=== PATIENT | male | born 1955 | race Caucasian/White ===

== ENCOUNTER 2023-12-27 15:46 | Observation (INO) ==
[2023-12-27 16:45] LABS: Basophils # (auto) 0.02 K/uL (0.00-0.20); Basophils % (auto) 0.3 %; Eosinophils % (auto) 1.3 %; Hematocrit (blood only) 40.1 % (42.0-52.0); Hemoglobin 13.1 g/dl (14.0-18.0); Immature Granulocytes # (auto) 0.02 K/uL (0.01-0.20); Immature Granulocytes % (auto) 0.3 %; Lymphocytes # (auto) 2.01 K/uL (1.20-3.40); Lymphocytes % (auto) 25.5 %; Mean Corpuscular Hemoglobin 28.5 pg (25.0-34.0); Mean Corpuscular Hgb Conc 32.7 g/dL (32.0-36.0); Mean Corpuscular Volume 87.2 fL (80.0-100.0); Mean Platelet Volume 10.4 fL (9.4-12.4); Monocytes # (auto) 0.71 K/uL (0.11-0.59); Neutrophils # (auto) 5.01 K/uL (1.40-6.50); Neutrophils % (auto) 63.6 %; Platelet Count 238 K/uL (130-400); RDW Coefficient of Variation 13.2 % (11.5-14.5); RDW Standard Deviation 41.7 fL (36.4-46.3); White Blood Count 7.87 K/ul (4.8-10.8)
--- NOTE | 2023-12-27 16:54 | XRay Report ---
XR chest 1V portable CLINICAL HISTORY: Chest pain, nonspecific TECHNIQUE: Single frontal radiograph of the chest was obtained. Comparison: Comparison is made to chest radiograph 04/04/2021 FINDINGS: ACDF is seen. The cardiomediastinal silhouette is normal. The lungs are clear. No evidence of pleural effusion or pneumothorax. IMPRESSION: No acute chest disease. ACT 112: Negative or not required by law. Electronically signed by: Gustavo Jessica M.D. 12/27/2023 4:52 PM
[2023-12-27] MEDS: OPTIRAY 320 125ml IV ONE (16:58)
[2023-12-27 17:02] LABS: Albumin Globulin Ratio 1.4 (0.9-2); Albumin Level 4.3 gm/dl (3.4-5.0); BUN Creatinine Ratio 17.3 (10-20); Bilirubin,Total 0.5 mg/dl (0.2-1.0); Calcium 10.4 mg/dl (8.6-10.3); Creatinine Clr Calc Pharmacy 88.4 ml/min; Est GFR (African American) 80.6 ml/min; Est GFR (Non-African American) 69.6 ml/min; Potassium 4.3 mmol/L (3.5-5.1); Total Protein 7.3 gm/dl (6.0-8.3)
[2023-12-27 17:08] LABS: Troponin I High Sensitivity 7.7 pg/ml (0-20)
--- NOTE | 2023-12-27 17:09 | CT Scan Report ---
CT ANGIOGRAM OF THE CHEST CLINICAL HISTORY: Dyspnea COMPARISON STUDY: Chest x-ray dated 12/27/2023. TECHNIQUE: Following the IV administration of 120 cc of Optiray 320, CT angiogram of the chest was pe rformed from the upper abdomen to the thoracic inlet utilizing the pulmonary embolus protocol. Images are reviewed in the axial, sagittal, and coronal planes. 3-D MIPS images are created and assessed. I V contrast was administered without complication. A dose lowering technique was utilized adhering to the principles of ALARA. CT DOSE: 889.38 mGy.cm FINDINGS: Thyroid: Imaged portions of the thyroid gland are normal in size and attenuation. Thoracic aorta: There is moderate atherosclerotic calcification of the thoracic aorta, which is zohra l in caliber and demonstrates standard 3-vessel arch anatomy. No dissection is seen. Pulmonary vasculature: The pulmonary trunk is normal in caliber. There is pulmonary embolus within th e distal right main pulmonary artery which extends into the right lower lobe pulmonary artery into se gmental and subsegmental branches. There is also segmental and subsegmental pulmonary embolus within branches of the right upper and right middle lobe pulmonary arteries. Segmental and subsegmental pulm onary emboli are seen within branches of the left lower lobe and lingular pulmonary arteries. Heart: The heart is top normal in size and without pericardial effusion. The coronary arteries are de nsely calcified. Lungs and pleural spaces: Evaluation of the lung parenchyma is modestly degraded by motion artifact. No airspace consolidation or pleural effusion is identified. The trachea and central airways are bridgette r. Mediastinum: There is no mediastinal lymphadenopathy. Miranda: Clear. Axillae: There is no axillary lymphadenopathy. Upper abdomen: The liver is still a ptotic. Partially visualized upper abdominal viscera is otherwise within normal limits. Skeletal structures: No lytic or blastic bony lesions are seen. Fusion hardware is seen in the lower cervical spine. Arthritic change is noted in the shoulders. IMPRESSION: 1. Fairly extensive bilateral pulmonary embolus as detailed above. 2. There is no airspace consolidation or pleural effusion. 3. Coronary artery atherosclerosis. 4. Hepatic steatosis. 5. Additional findings as above. ACT 112: Negative or not required by law. Electronically signed by: Rhett Duffy M.D. 12/27/2023 5:07 PM
[2023-12-27] MEDS ORDERED: Heparin IV Adult Wt-Based Standard w/ INITIAL Bolus Protocol IV SCH (17:35)
--- NOTE | 2023-12-27 17:35 | History & Physical Report ---
Date of Service December 27, 2023 Assessment & Plan (1) Pulmonary embolism: Plan: Patient is a 68-year-old male who presents to the hospital with pulmonary embolism stemming from DVT. -Duplex ultrasound taken at [place], results scanned into chart, occlusive DVT from the left popliteal vein distally on 12/26. -CTA showed fairly extensive bilateral pulmonary emboli. -CXR negative. -Troponin negative, CBC and CMP benign -Started on heparin with bolus in the ED. -On room air satting above 92%, respiratory rate normal. 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 May need lifelong anticoagulation. -Plans to switch to Eliquis if stable overnight. Will defer to day team regarding transition timing. -CBC, BMP, PT/INR and PTT ordered in a.m. (2) DVT (deep venous thrombosis): Plan: - DVT seen at [place] as noted above. (3) Hypertension: Plan: - Continue home meds. (4) Prediabetes: Plan: - Patient's home regimen held on admission - Continue BSG checks, sliding-scale insulin, hypoglycemic protocol (5) HLD (hyperlipidemia): Plan: - continue home meds. Plan Fluids: None Nutrition: Heart healthy, DM2 Code status: DNR DVT ppx: Heparin Dispo:Telemetry History of Present Illness Chief Complaint: Pulmonary embolus Primary Care Provider: Yang Balderas Patient is a 68-year-old male who presents to the hospital with pulmonary embolism stemming from a DVT. Patient had a duplex ultrasound this afternoon which showed a DVT. He decided to come into the hospital based on this test. He has been having some feeling of tiredness and shortness of breath with exertion over the past 3 weeks. 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 States that he tries to get up and move around though sometimes is in the car for up to 14 hours. Was recently sick with a upper respiratory infection a couple weeks ago which is now resolved. Denies any cough, hemoptysis, chest pain, or abdominal pain. Denies any shortness of breath at this time. Allergies Allergy/AdvReac Type Severity Reaction Status Date / Time acetaminophen Allergy Hives Verified 12/27/23 18:35 [From [facility] NyQuil Cold/Flu Liquicap] dextromethorphan Allergy Hives Verified 12/27/23 18:35 [From [facility] NyQuil Cold/Flu Liquicap] doxylamine Allergy Hives Verified 12/27/23 18:35 [From [facility] NyQuil Cold/Flu Liquicap] Home Medications Medication Instructions Recorded Confirmed Type hydrochlorothiazide 12.5 mg capsule 12.5 mg PO QAM 08/13/18 12/27/23 History lisinopril 40 mg tablet 40 mg PO QAM 08/13/18 12/27/23 History metformin 500 mg tablet,extended 500 mg PO QAM 04/04/21 12/27/23 History release 24 hr ibuprofen 200 mg tablet (Advil) 600 - 800 mg PO Q8 PRN Pain 12/27/23 12/27/23 History rosuvastatin 5 mg tablet 5 mg PO DAILY 12/27/23 12/27/23 History sildenafil 25 mg tablet (Viagra) 0 mg PO DAILY PRN .before activity 12/27/23 12/27/23 History Past Med/Surg History Problem List (Updated 12/27/23 @ 18:42 by Rhett Cazares DO) HLD (hyperlipidemia) Prediabetes DVT (deep venous thrombosis) (Acute) Pulmonary embolism (Acute) Right hamstring muscle strain Encounter for pre-operative examination Medical History Hypertension Smokeless tobacco use Surgical History Fusion of spine CERVICAL History of colonoscopy History of tooth extraction Social History Smoking Status: Never smoker Tobacco Type: Smokeless Tobacco (Dip or Chew) Second Hand Exposure: Yes (RARELY); Do You Dip or Chew Tobacco: Yes (10 pouches per day); Hx Alcohol Use: Yes Alcohol type: beer Hx Substance Use: No Preferred Language: Irish Communication Ability: Effective Heating Equipment Installer Required: No Beliefs That Will Affect Care: None Current Living Situation: Spouse Other Information That Helps Us Care for You: No Feels Safe at Home: Yes Safety Concerns: Feels Safe At This Time Assistive Devices: Glasses and Hearing Aid - Bilateral Review of Systems Review of Systems: All systems reviewed & are unremarkable except as noted in Subjective Physical Exam Physical Exam: Constitutional: well-appearing, no acute distress HEENT: NCAT, no conjunctival injection CV: regular rhythm, no murmur appreciated, extremities well-perfused, no LE edema Resp: CTABL, no wheezes/rales/rhonchi appreciated, no increased work of breathing GI: soft, nondistended, nontender, BS normoactive MSK: no gross deformities appreciated Skin: warm, dry, no rash appreciated Neuro: alert, oriented, no focal neurologic deficit appreciated Results & Data Results & Data Vital Signs (Past 12 Hours) Vital Signs Temp Pulse Pulse Resp BP BP Pulse Ox 12/27/23 17:07 67 13 97 12/27/23 17:07 111/77 12/27/23 17:05 72 12/27/23 16:29 12/27/23 16:29 70 18 122/79 97 12/27/23 15:57 36.3 C L 79 20 131/85 96 O2 Del Method 12/27/23 17:07 Room Air 12/27/23 17:07 12/27/23 17:05 12/27/23 16:29 Room Air 12/27/23 16:29 Room Air 12/27/23 15:57 Supervising Physician Co-Signing Physician Notes I personally saw and examined the patient. I verified all galvan points and agree with resident physician Dr Rhett Cazares, with the following exceptions and/or additions: 68 year old male presents to the ER with DVT diagnosed earlier in the day with 3 weeks of left leg swelling. Also having some generalized fatigue on exertion O/E HS RRR, no murmurs, Chest CTAB, Abdo SNT A/P Pulmonary Emboli - IV heparin, if stable overnight can switch to DOAC tomorrow (1) Pulmonary embolism Acute cor pulmonale presence: unspecified Chronicity: unspecified Pulmonary embolism type: unspecified Qualified Code(s): I26.99 - Other pulmonary embolism without acute cor pulmonale (2) DVT (deep venous thrombosis) Affected thrombotic vein of extremity: unspecified vein of extremity Chronicity: acute DVT location: lower extremity Laterality: left Qualified Code(s): I82.402 - Acute embolism and thrombosis of unspecified deep veins of left lower extremity
--- NOTE | 2023-12-27 17:50 | Emergency Department Note ---
Impression & Plan Pulmonary embolism, DVT (deep venous thrombosis) ED Provider Note NAME: TEN TAN Jr AGE: 68 SEX: M : 1955 ARRIVES VIA: Walk-In INFORMANT: Patient ED PROVIDER(S): Justin Madison DO CHIEF COMPLAINT: DVT HPI: Patient is a 68-year-old male who presents the ER for DVT in the left lower extremity associated with feeling tired when he is up moving around. 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 He has been feeling tired/winded for the past 3 weeks. He has been having pain in the back of his left calf for the past 4 weeks. Denies any belly pain nausea vomiting or diarrhea. No dysuria urgency or frequency. No other exacerbating or remitting factors. No previous blood clots. No hemoptysis, hematemesis, hematuria, black stools or dark tarry stools. No recent surgeries. No previous brain bleeds. Additional history obtained from who notes that they just flew and he spends a lot of time in the car. ADDITIONAL HISTORY OBTAINED: Per HPI Chronic Medical/Social Conditions Affecting Care: Per HPI PAST MEDICAL HISTORY:See Below PAST SURGICAL HISTORY:See Below FAMILY HISTORY:See Below SOCIAL HISTORY:See Below HOME MEDICATIONS:See Below ALLERGIES:See Below VITALS:See Below PHYSICAL EXAMINATION: GENERAL: Sitting up in bed, alert, well appearing, well nourished, no distress, non-toxic EYE EXAM: normal conjunctiva. OROPHARYNX: no exudate, no erythema, lips, buccal mucosa, and tongue normal and mucous membranes are moist NECK: supple, no nuchal rigidity, no adenopathy, non-tender LUNGS: Clear to auscultation. Normal chest wall mechanics HEART: no murmurs, S1 normal and S2 normal ABDOMEN: abdomen soft, non-tender, normo-active bowel sounds, no masses, no rebound or guarding. UPPER EXTREMITIES: upper extremities are grossly normal. LOWER EXTREMITIES: No pitting edema. Left calf larger than right NEURO EXAM: Normal sensorium, cranial nerves II-XII grossly intact, normal speech, no gross weakness of arms, no gross weakness of legs. MEDICAL DECISION MAKING: Patient is a 68-year-old male who presents ER for above-stated complaint. IV was established blood work was obtained. External records were reviewed from the ER earlier today and [facility] which showed DVT in the left popliteal which was occlusive with DVT tracking down through the calf. There is nothing else proximally. Labs show no significant leukocytosis or anemia. BMP was unremarkable. Troponin was negative as well as LFTs and lipase. CT angio of the chest was obtained and showed extensive bilateral PEs. No bleeding risk factors. Placed on a heparin bolus and given a heparin drip and discussed the case with the hospitalist for further evaluation management treatment. Consults/Care Managements Discussions: Per MDM Triage Nursing notes reviewed. Limited review of prior medical records performed Vital Signs: reviewed and remarkable for no significant abnormalities Differential diagnosis: Differential diagnoses includes but is not limited to pneumonia, bronchitis, COPD/Asthma exacerbation, pneumothorax, pulmonary embolism, congestive heart failure, acute coronary syndrome ER treatment provided: See below Diagnostics interpreted by me include EKG and cardiac monitoring as listed below: -Cardiac Monitoring: An order was placed for continuous cardiac monitoring. The monitor shows a rate of 70 with sinus rhythm. -ECG: Sinus rhythm rate of 73 Normal axis No PVCs QTc 409 -Laboratory studies:Interpreted by me as stated above in MDM and shown below. Imaging studies: Xrays: As interpreted by me:none CTs show: CT angio of the chest shows bilateral PEs per my interpretation CT angio of chest per radiology as described above Procedures:none Critical Care: I have personally spent 35 minutes of critical care time in the direct management of this patient. This includes bedside care, interpretation of diagnostic studies, and testing, discussion with consultants, patient, and family members, and other required patient management activities. This 35 minutes is in excess of all separately billable procedures. Past Med/Surg History Problem List (Updated 12/27/23 @ 17:50 by Justin Madison DO) DVT (deep venous thrombosis) (Acute) Pulmonary embolism (Acute) Right hamstring muscle strain Encounter for pre-operative examination Medical History Hypertension Smokeless tobacco use Surgical History Fusion of spine CERVICAL History of colonoscopy History of tooth extraction Social History Smoking Status: Never smoker Second Hand Exposure: Yes (RARELY); Do You Dip or Chew Tobacco: Yes (4 CANS WEEKLY); Hx Alcohol Use: Yes Alcohol type: beer and wine Hx Substance Use: No Preferred Language: Jordanian Communication Ability: Effective Boat Hop Required: No Beliefs That Will Affect Care: None Current Living Situation: Spouse Feels Safe at Home: Yes Assistive Devices: Glasses Allergies Allergies Allergy/AdvReac Type Severity Reaction Status Date / Time No Known Allergies Allergy Mild Verified 06/10/21 13:42 Home Meds Home Medications Medication Instructions Recorded Confirmed hydrochlorothiazide 12.5 mg capsule 12.5 mg PO QAM 08/13/18 06/10/21 lisinopril 40 mg tablet 40 mg PO QAM 08/13/18 06/10/21 metformin 500 mg tablet,extended 500 mg PO QAM 04/04/21 06/10/21 release 24 hr atorvastatin 20 mg tablet 20 mg PO DAILY 06/10/21 06/10/21 Results & Data (ED) Vital Signs Vital Signs - 24 hr 12/27/23 15:57 12/27/23 16:29 12/27/23 16:29 Temperature 36.3 C L Temperature Source Temporal Artery Scan Pulse Rate 79 Pulse Rate [Apical] 70 Pulse Rate from SpO2 Sensor Respiratory Rate 20 18 Blood Pressure 131/85 Blood Pressure [Left Arm] 122/79 Blood Pressure Mean 100 Blood Pressure Mean [Left Arm] 93 Pulse Oximetry 96 97 Oxygen Delivery Method Room Air Room Air Sepsis Recent Fever Within 48 Hours No Sepsis New/Unexplained Change in Mental Status N/A Sepsis Action Taken by Nursing No Action Required 12/27/23 17:05 12/27/23 17:07 12/27/23 17:07 Temperature Temperature Source Pulse Rate 72 67 Pulse Rate [Apical] Pulse Rate from SpO2 Sensor 67 Respiratory Rate 13 Blood Pressure 111/77 Blood Pressure [Left Arm] Blood Pressure Mean 84 Blood Pressure Mean [Left Arm] Pulse Oximetry 97 Oxygen Delivery Method Room Air Sepsis Recent Fever Within 48 Hours Sepsis New/Unexplained Change in Mental Status Sepsis Action Taken by Nursing Laboratory Data 12/27/23 16:32 12/27/23 16:32 Lab Results 12/27/23 Range/Units 16:32 WBC 7.87 (4.8-10.8) K/ul RBC 4.60 L (4.70-6.10) M/uL Hgb 13.1 L (14.0-18.0) g/dl Hct 40.1 L (42.0-52.0) % MCV 87.2 (80.0-100.0) fL MCH 28.5 (25.0-34.0) pg MCHC 32.7 (32.0-36.0) g/dL RDW Std Deviation 41.7 (36.4-46.3) fL RDW Coeff of Gab 13.2 (11.5-14.5) % Plt Count 238 (130-400) K/uL MPV 10.4 (9.4-12.4) fL Immature Gran % (Auto) 0.3 % Neut % (Auto) 63.6 % Lymph % (Auto) 25.5 % Meagher % (Auto) 9.0 % Eos % (Auto) 1.3 % Baso % (Auto) 0.3 % Neut # (Auto) 5.01 (1.40-6.50) K/uL Lymph # (Auto) 2.01 (1.20-3.40) K/uL Meagher # (Auto) 0.71 H (0.11-0.59) K/uL Eos # (Auto) 0.10 (0.00-0.50) K/uL Baso # (Auto) 0.02 (0.00-0.20) K/uL Immature Gran # (Auto) 0.02 (0.01-0.20) K/uL Sodium 140 (136-145) mmol/L Potassium 4.3 (3.5-5.1) mmol/L Chloride 104 (98-107) mmol/L Carbon Dioxide 29 (21-32) mmol/L Anion Gap 7 (3-11) BUN 19 (6-23) mg/dl Creatinine 1.10 (0.6-1.4) mg/dl Est Cr Clr Drug Dosing 88.4 ml/min Est GFR ( Amer) 80.6 ml/min Est GFR (Non-Af Amer) 69.6 ml/min BUN/Creatinine Ratio 17.3 (10-20) Glucose 143 H (70-99(Fasting)) mg/dl Calcium 10.4 H (8.6-10.3) mg/dl Total Bilirubin 0.5 (0.2-1.0) mg/dl AST 29 (13-39) U/L ALT 38 (7-52) U/L Alkaline Phosphatase 56 (34-104) U/L Troponin I High Sens 7.7 (0-20) pg/ml Total Protein 7.3 (6.0-8.3) gm/dl Albumin 4.3 (3.4-5.0) gm/dl Globulin 3.0 (2.5-4.0) gm/dl Albumin/Globulin Ratio 1.4 (0.9-2) Lipase 16 (11-82) U/L Administered Medications Discontinued Medications Ioversol (Optiray 320 125ml) 120 ml IV ONCE ONE Stop: 12/27/23 16:59 Last Admin: 12/27/23 16:58 Dose: 120 ml Documented By: LASHON Imaging Data Radiologist's Impression: Chest CTA 12/27/23 16:18 CT ANGIOGRAM OF THE CHEST CLINICAL HISTORY: Dyspnea COMPARISON STUDY: Chest x-ray dated 12/27/2023. TECHNIQUE: Following the IV administration of 120 cc of Optiray 320, CT angiogram of the chest was performed from the upper abdomen to the thoracic inlet utilizing the pulmonary embolus protocol. Images are reviewed in the axial, sagittal, and coronal planes. 3-D MIPS images are created and assessed. IV contrast was administered without complication. A dose lowering technique was utilized adhering to the principles of ALARA. CT DOSE: 889.38 mGy.cm FINDINGS: Thyroid: Imaged portions of the thyroid gland are normal in size and attenuation. Thoracic aorta: There is moderate atherosclerotic calcification of the thoracic aorta, which is normal in caliber and demonstrates standard 3-vessel arch anatomy. No dissection is seen. Pulmonary vasculature: The pulmonary trunk is normal in caliber. There is pulmonary embolus within the distal right main pulmonary artery which extends into the right lower lobe pulmonary artery into segmental and subsegmental branches. There is also segmental and subsegmental pulmonary embolus within branches of the right upper and right middle lobe pulmonary arteries. Segmental and subsegmental pulmonary emboli are seen within branches of the left lower lobe and lingular pulmonary arteries. Heart: The heart is top normal in size and without pericardial effusion. The coronary arteries are densely calcified. Lungs and pleural spaces: Evaluation of the lung parenchyma is modestly degraded by motion artifact. No airspace consolidation or pleural effusion is identified. The trachea and central airways are clear. Mediastinum: There is no mediastinal lymphadenopathy. Miranda: Clear. Axillae: There is no axillary lymphadenopathy. Upper abdomen: The liver is still a ptotic. Partially visualized upper abdominal viscera is otherwise within normal limits. Skeletal structures: No lytic or blastic bony lesions are seen. Fusion hardware is seen in the lower cervical spine. Arthritic change is noted in the shoulders. IMPRESSION: 1. Fairly extensive bilateral pulmonary embolus as detailed above. 2. There is no airspace consolidation or pleural effusion. 3. Coronary artery atherosclerosis. 4. Hepatic steatosis. 5. Additional findings as above. ACT 112: Negative or not required by law. Electronically signed by: Rhett uDffy M.D. 12/27/2023 5:07 PM Chest X-Ray 12/27/23 16:18 XR chest 1V portable CLINICAL HISTORY: Chest pain, nonspecific TECHNIQUE: Single frontal radiograph of the chest was obtained. Comparison: Comparison is made to chest radiograph 04/04/2021 FINDINGS: ACDF is seen. The cardiomediastinal silhouette is normal. The lungs are clear. No evidence of pleural effusion or pneumothorax. IMPRESSION: No acute chest disease. ACT 112: Negative or not required by law. Electronically signed by: Gustavo Jessica M.D. 12/27/2023 4:52 PM Discharge Plan Visit Data Chief Complaint: Referred by Doctor Stated Complaint: BLOOD CLOT LT LEG ED Provider: Justin Madison Discharge Problem: Pulmonary embolism, DVT (deep venous thrombosis) Forms Stand Alone Forms: [employer] Prescriptions Prescriptions: No Action atorvastatin 20 mg tablet 20 mg PO DAILY hydrochlorothiazide 12.5 mg Capsule 12.5 mg PO QAM lisinopril 40 mg Tablet 40 mg PO QAM metformin 500 mg tablet extended release 24 hr 500 mg PO QAM Rx Instructions: take with a bite of food Referrals Referrals: Yang Balderas [Primary Care Provider] - Discharge Problem: Pulmonary embolism Qualifiers: Pulmonary embolism type: unspecified Chronicity: unspecified Acute cor pulmonale presence: unspecified Qualified Code(s): I26.99 - Other pulmonary embolism without acute cor pulmonale DVT (deep venous thrombosis) Qualifiers: DVT location: lower extremity Affected thrombotic vein of extremity: u nspecified vein of extremity Chronicity: acute Laterality: left Qualified Code(s): I82.402 - Acute embolism and thrombosis of unspecified deep veins of left lower extremity
[2023-12-27 17:55] LABS: Partial Thromboplastin Ratio 0.9; Partial Thromboplastin Time 24 Seconds (21-31); Prothrombin Time 10.8 Seconds (9.0-12.0)
[2023-12-27] MEDS: HEPARIN SOD (PORCINE) 1000 UNIT/ML IV ONE (17:56)
[2023-12-27] MEDS: HEPARIN SODIUM/DEXTROSE 25,000 UNITS/500 ML BAG IV SCH (17:57)
[2023-12-27] MEDS: Heparin IV Adult Wt-Based Standard w/ INITIAL Bolus Protocol IV STA (17:58)
[2023-12-27] MEDS ORDERED: HEPARIN SOD (PORCINE) 1000 UNIT/ML IV ONE (18:15)
[2023-12-27] MEDS ORDERED: POLYETHYLENE (MIRALAX) 17 GM PACK PO PRN (19:21)
[2023-12-27] MEDS ORDERED: DEXTROSE 50% 50 ML SYRINGE IV PRN (19:21)
[2023-12-27] MEDS ORDERED: ONDANSETRON INJ 2 MG/ML 2 ML VIAL IV PRN (19:21)
[2023-12-27] MEDS ORDERED: NITROGLYCERIN SL 0.4 MG/TAB TAB SL PRN (19:21)
[2023-12-27] MEDS ORDERED: GLUCOSE 10 TAB/TUBE PO PRN (19:21)
[2023-12-27] MEDS ORDERED: ACETAMINOPHEN 325 MG TAB PO PRN (19:21)
[2023-12-27] MEDS ORDERED: GLUCAGON FOR INJ 1 MG VIAL SQ PRN (19:21)
[2023-12-27] MEDS ORDERED: GLUCOSE 40% GEL 15 GM TUBE PO PRN (19:21)
[2023-12-27] MEDS ORDERED: CARBOHYDRATES FOR HYPOGLYCEMIA PO PRN (19:21)
[2023-12-27] MEDS: INSULIN ASPART PER UNIT CHARGE SC SCH (21:27)
[2023-12-28 00:21] LABS: ANTI-Xa, UFH(UnfractionatedHep 0.44 IU/ml (0.3-0.7)
[2023-12-28] MEDS: ACETAMINOPHEN 325 MG TAB PO PRN (03:05)
[2023-12-28 06:30] LABS: Basophils # (auto) 0.02 K/uL (0.00-0.20); Basophils % (auto) 0.3 %; Eosinophils % (auto) 2.7 %; Hemoglobin 12.3 g/dl (14.0-18.0); Immature Granulocytes # (auto) 0.03 K/uL (0.01-0.20); Immature Granulocytes % (auto) 0.4 %; Lymphocytes # (auto) 3.12 K/uL (1.20-3.40); Lymphocytes % (auto) 42.4 %; Mean Corpuscular Hemoglobin 28.7 pg (25.0-34.0); Mean Corpuscular Hgb Conc 33.2 g/dL (32.0-36.0); Mean Corpuscular Volume 86.4 fL (80.0-100.0); Mean Platelet Volume 10.6 fL (9.4-12.4); Monocytes # (auto) 0.66 K/uL (0.11-0.59); Neutrophils # (auto) 3.32 K/uL (1.40-6.50); Neutrophils % (auto) 45.2 %; Platelet Count 224 K/uL (130-400); RDW Coefficient of Variation 13.3 % (11.5-14.5); RDW Standard Deviation 41.6 fL (36.4-46.3); Red Blood Count 4.28 M/uL (4.70-6.10); White Blood Count 7.35 K/ul (4.8-10.8)
[2023-12-28 06:47] LABS: BUN Creatinine Ratio 18.4 (10-20); Calcium 9.4 mg/dl (8.6-10.3); Creatinine Clr Calc Pharmacy 94.8 ml/min; Est GFR (African American) 87.3 ml/min; Est GFR (Non-African American) 75.3 ml/min; Potassium 3.9 mmol/L (3.5-5.1)
[2023-12-28 07:05] LABS: ANTI-Xa, UFH(UnfractionatedHep 0.44 IU/ml (0.3-0.7); Partial Thromboplastin Ratio 1.6; Partial Thromboplastin Time 43 Seconds (21-31); Prothrombin Time 10.9 Seconds (9.0-12.0)
--- NOTE | 2023-12-28 08:03 | Electrocardiogram Report ---
Test Reason : Blood Pressure : / mmHG Vent. Rate : 073 BPM Atrial Rate : 073 BPM P-R Int : 164 ms QRS Dur : 098 ms QT Int : 372 ms P-R-T Axes : 013 -06 018 degrees QTc Int : 409 ms Normal sinus rhythm Normal ECG When compared with ECG of 04-APR-2021 21:13, No significant change was found Confirmed by Jacob Main ([id number]) on 12/28/2023 8:02:34 AM Referred By: Yang Balderas Confirmed By:Raheem Main
[2023-12-28] MEDS: hydroCHLOROthiazide 25 MG TAB PO SCH (08:26)
[2023-12-28] MEDS: ATORVASTATIN 20 MG TAB PO SCH (08:26)
[2023-12-28] MEDS: lisinopril 40 MG TAB PO SCH (08:26)
--- NOTE | 2023-12-28 10:42 | Billing Data ---
Date of Service December 27, 2023 Coding Level of Care Code 81353 INT INP/OBS CARE
[2023-12-28] MEDS: RIVAROXABAN 15 MG TAB PO ONE (12:11)
--- NOTE | 2023-12-28 12:47 | Discharge Summary ---
<Statement entered by Araceli Longoria MD - 12/28/23 18:46> Reviewed chart notes, studies, labs, vitals, personally examined Mr. Burkett and exam notable for mild LLE swelling. Counseled patient and his on risks and benefits of anticoagulation. Xarelto preferred because of his BMI, once daily dosing. Risk factor was long drives for work. 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 Discharge Summary Date of Service December 28, 2023 Notes For Next Care Provider CBC and BMP lab slip ordered for next week. PCP appointment scheduled for 01/05/2024 at 2 PM. Medication Changes From Visit Started on Xarelto 15 mg twice daily x 21 days. Transition to Xarelto 20 mg once daily after 21-day course is completed. Admission HPI Per Admitting Provider Patient is a 68-year-old male who presents to the hospital with pulmonary embolism stemming from a DVT. Patient had a duplex ultrasound this afternoon which showed a DVT. He decided to come into the hospital based on this test. He has been having some feeling of tiredness and shortness of breath with exertion over the past 3 weeks. 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 States that he tries to get up and move around though sometimes is in the car for up to 14 hours. Was recently sick with a upper respiratory infection a couple weeks ago which is now resolved. Denies any cough, hemoptysis, chest pain, or abdominal pain. Denies any shortness of breath at this time. Admission Exam Per Admitting Provider Constitutional: well-appearing, no acute distress HEENT: NCAT, no conjunctival injection CV: regular rhythm, no murmur appreciated, extremities well-perfused, no LE edema Resp: CTABL, no wheezes/rales/rhonchi appreciated, no increased work of breathing GI: soft, nondistended, nontender, BS normoactive MSK: no gross deformities appreciated Skin: warm, dry, no rash appreciated Neuro: alert, oriented, no focal neurologic deficit appreciated Principal Dx & Hospital Course #1 = Principal Diagnosis (1) Pulmonary embolism: Patient is a 68-year-old male who presented to the hospital with pulmonary embolism stemming from DVT. -Duplex ultrasound taken at [facility], results scanned into chart, occlusive DVT from the left popliteal vein distally on 12/26. -CTA showed fairly extensive bilateral pulmonary emboli. -CXR negative. -Troponin negative, CBC and CMP benign -Job requires driving for long expended period of time, no other provoking causes noted on history. May need lifelong anticoagulation. -Started on heparin with bolus in the ED. -On room air satting above 92%, respiratory rate normal. -Discontinued heparin and started Xarelto 12/28/2023. -- Xarelto 15 mg twice daily x 21 days. Continue with Xarelto 20 mg once daily after 21-day course is completed. -- First dose of Xarelto given at hospital prior to discharge. Instructed patient to orange picker prescription and take second dose this evening. -- CBC and BMP lab slip ordered to be drawn next week prior to PCP appointment. -- PCP follow-up appointment scheduled for 01/05/2024 at 1400. -Discussed anticoagulation options with pharmacy. They recommended Xarelto over Eliquis due to patient's BMI and body weight. -Discussed anticoagulation therapy in detail with patient, including risks of GI bleeding, intracranial hemorrhage, and stroke warning signs. (2) DVT (deep venous thrombosis): - DVT seen at [facility] as noted above. (3) Hypertension: - Continue home meds. (4) Prediabetes: - Patient's home regimen held on admission -Home regimen continued upon discharge (5) HLD (hyperlipidemia): - continue home meds. Plan Started patient on Xarelto for VTE treatment. Educated patient on starting anticoagulation. Including risks such as GI bleeding, intracranial hemorrhage, stroke warning signs. CODE STATUS: DNR/DNI Discharge Exam Constitutional: well-appearing, no acute distress HEENT: NCAT, no conjunctival injection CV: regular rhythm, no murmur appreciated, extremities well-perfused, no LE edema Resp: CTABL, no wheezes/rales/rhonchi appreciated, no increased work of breathing GI: soft, nondistended, nontender, BS normoactive MSK: no gross deformities appreciated Skin: warm, dry, no rash appreciated Neuro: alert, oriented, no focal neurologic deficit appreciated Updated Medication List Medication Instructions Recorded Confirmed Type hydrochlorothiazide 12.5 mg capsule 12.5 mg PO QAM 08/13/18 12/27/23 History lisinopril 40 mg tablet 40 mg PO QAM 08/13/18 12/27/23 History metformin 500 mg tablet,extended 500 mg PO QAM 04/04/21 12/27/23 History release 24 hr rosuvastatin 5 mg tablet 5 mg PO DAILY 12/27/23 12/27/23 History sildenafil 25 mg tablet (Viagra) 0 mg PO DAILY PRN .before activity 12/27/23 12/27/23 History rivaroxaban 15 mg tablet (Xarelto) 15 mg PO BID 21 days #42 tabs 12/28/23 Rx Hospital Stay Data Consultations 12/27/23 17:39 ED Decision to Admit Stat Diagnostic Imagining Performed 12/27/23 16:18 CT angio chest PE protocol Stat Pending Results Patient Have Any Pending Studies at Discharge: No Discharge Instructions Given to Patient (Per Discharging Provider) Mr. Burkett, Navin were admitted to the hospital with bilateral pulmonary embolisms (PEs) stemming from deep vein thromboses (DVTs). A DVT is a blood clot in a large vein deep in the leg, arm, or elsewhere in the body. The clot can separate from the vein, travel to the lungs, and cut off blood flow. This is a pulmonary embolism (PE). Anyone can get a blood clot, but there are certain risk factors that increase the likelihood for a blood clot to form including being inactive for a long period of time such as long car rides. I suspect that this was the cause for your blood clot formation given your occupation involving lengthy car rides. With treatment, blood clots are often dissolved or removed. Having a PE can put you at risk for another life-threatening blood clot. Therefore, treatment is needed to prevent future clots. You are being discharged on anticoagulation (blood thinners) to help keep your blood clots from forming again. Lifestyle changes - To prevent problems with your heart and blood vessels, I recommend the following: * When traveling by car, make frequent stops to get up and move around. You can also wiggle your toes, move your ankles, and tight your calfs to keep your blood moving. * Try to exercise at least 30 minutes on most days. Before starting an exercise program, talk with your PCP. * Stay at a healthy weight. You can talk with your PCP about weight loss strategies if needed. * If you smoke, get help to quit. You can talk with your PCP about medicines or programs that can help. Upon discharge from the hospital: * Start Xarelto (anticoagulant). This is a blood thinner that treats and prevents blood clots. - You will take Xarelto 15 mg twice daily with food for 21 days. After that, you will take 20 mg once daily with food. * Get your blood drawn next Monday or . - A lab slip has been printed with your discharge orders, however if you choose to go to a [facility], you will not need the slips as the order is already in our computer system. - Your PCP will review the results of your lab work at your follow-up appointment. * Follow-up with your PCP. Your appointment is scheduled for next 01/05/2024 at 2:00 PM. * Be cautious using NSAIDs or aspirin/aspirin containing products as this can increase your risk of bleeding on Xarelto. Please contact your PCP if you experience symptoms of bleeding, including: Blood in your urine, blood in your stool (either bright red or black/tarry), coughing with blood, vomiting with blood, excessive bleeding from her nose, gums, or a cut, or redness/discoloration/swelling and a leg, arm, or other area.. Please return to the hospital if you experience any of the following: Heavy or uncontrolled bleeding, chest pain, difficulty breathing, fast heartbeat, chest palpitations, excessive sweating, or fainting. It was a pleasure taking care of you while you were in the hospital, Araceli Wiseman PA-C Total Time Total Time Spent Total Time Spent (In Minutes): Greater than 30 minutes spent completing this discharge process including direct patient care, medication reconciliation, documentation, review of labs and images, and coordination of care. Coding Level of Care Code 86192 INP/OBS DISCH >30 MIN Diagnoses Pulmonary embolism I26.99 Acute cor pulmonale presence: unspecified Chronicity: unspecified Pulmonary embolism type: unspecified DVT (deep venous thrombosis) I82.402 Affected thrombotic vein of extremity: unspecified vein of extremity Chronicity: acute DVT location: lower extremity Laterality: left Hypertension I10 Prediabetes R73.03 HLD (hyperlipidemia) E78.5
== END 2023-12-28 13:38 | disposition home or self-care (01) ==
LOC: 2S 15:46 → ED 15:46 → SUATTDRO 18:00 → 2S 18:41